=== PATIENT | female | born 1995 | race Caucasian/White ===

== ENCOUNTER 2025-02-14 18:16 | Emergency (ER) | payer BC ==
[~2025-02-14] VITALS: Ht 170.2 cm; Wt 59.0 kg
[2025-02-14] MEDS ORDERED: FAMOTIDINE (20 MG) 20 MG TABLET ONE (18:41)
[2025-02-14] MEDS: FAMOTIDINE (20 MG) 20 MG TABLET PO ONE (18:44)
[2025-02-14] MEDS: IV NS 0.9% 1,000 ML BAG IV ONE (20:10)
[2025-02-14 20:52] LABS: PLATELET COUNT (AUTO) 293 K/uL (150-450); RED BLOOD CELL COUNT(AUTO) 4.34 MIL/uL (4.0-5.2); RED CELL DISTRIBUTION WIDTH 12.9 % (11.5-15.0); WHITE BLOOD COUNT (AUTO) 6.3 K/uL (4.3-11.0)
[2025-02-14 20:59] LABS: CALCIUM, SERUM 8.4 mg/dL (8.5-10.1); CREATININE 0.7 mg/dL (0.6-1.3); SODIUM SERUM 141.0 mmol/L (136-145); UREA NITROGEN, BLOOD 9.0 mg/dL (7-18)
[2025-02-14 21:05] LABS: APPEARANCE,URINE CLEAR (CLEAR); BLOOD, URINE NEGATIVE Ery/uL (NEGATIVE); LEUKOCYTE ESTERASE ,URINE 1+ (NEGATIVE); NITRITE, URINE NEGATIVE (NEGATIVE); PREGNANCY TEST URINE QUAL NEGATIVE (NEGATIVE); UGLUCOSE NEGATIVE (NEGATIVE)
[2025-02-14 21:08] LABS: ADD URINE CULTURE YES
[2025-02-14 21:09] LABS: SQUAMOUS EPITHELIAL CELL,UR Moderate /HPF (None Seen)
[2025-02-14] MEDS ORDERED: EPIN0.3P3 IM (21:15)
[2025-02-14] MEDS ORDERED: PRED50TA PO (21:15)
[2025-02-14 21:30] VITALS: BP 121/82; TEMP 97.8; O2SAT 98
== END 2025-02-14 21:30 | disposition home or self-care (01) ==
LOC: ER 18:26
DX: R51.9 Headache, unspecified (principal); T36.8X5A Adverse effect of other systemic antibiotics, initial encounter; R42 Dizziness and giddiness; N39.0 Urinary tract infection, site not specified; R06.02 Shortness of breath; Z88.1 Allergy status to other antibiotic agents; Z88.2 Allergy status to sulfonamides; Y92.89 Other specified places as the place of occurrence of the external cause
CPT/HCPCS: 99284; 96360; 85025; 80048; 87086; 84703; 81001; 36415; Q0163; J7512; J7030